=== PATIENT | female | born 1995 | race Caucasian/White ===

== ENCOUNTER 2017-04-07 12:24 | Inpatient (IN) | payer BC, OTHER ==
[2017-04-07] VITALS (13 sets, daily range): BP systolic 105–165; BP diastolic 64–111
[~2017-04-07] VITALS: Ht 167.6 cm; Wt 91.4 kg
[2017-04-07 14:45] LABS: EOSINOPHIL (%) 0.1 % (0-5); HEMATOCRIT 32.6 % (36.0-46.0); IMMATURE GRANULOCYTE (%) 0.4 % (0.0-0.7); IMMATURE GRANULOCYTE COUNT 0.1 K/uL; INSTRUMENT ABS NEUTROPHIL CT 15.2 K/uL; MCH 28.6 PG (29.0-34.0); MCHC 32.5 G/DL (30.0-36.0); MCV 87.9 FL (83-99); MEAN PLAT.VOLUME 11.6 uM^3 (9.5-12.4); MONOCYTE (%) 4.5 % (3-12); MONOCYTE COUNT 0.8 K/uL (0-0.8); NEUTROPHIL (%) 88.9 % (45-76); NEUTROPHIL COUNT 15.2 K/uL (1.8-6.4); PLATELET COUNT 240 K/uL (156-360); RBC DIS.WIDTH-SD 44.8 % (39-53); RED BLOOD COUNT 3.71 M/uL (3.80-5.20)
[2017-04-08 07:26] LABS: EOSINOPHIL (%) 0.2 % (0-5); HEMATOCRIT 29.7 % (36.0-46.0); IMMATURE GRANULOCYTE (%) 0.4 % (0.0-0.7); IMMATURE GRANULOCYTE COUNT 0.1 K/uL; INSTRUMENT ABS NEUTROPHIL CT 10.8 K/uL; LYMPHOCYTE COUNT 1.2 K/uL (1.0-2.8); MCH 28.4 PG (29.0-34.0); MCV 88.7 FL (83-99); MEAN PLAT.VOLUME 11.9 uM^3 (9.5-12.4); MONOCYTE (%) 5.9 % (3-12); MONOCYTE COUNT 0.8 K/uL (0-0.8); NEUTROPHIL (%) 83.7 % (45-76); NEUTROPHIL COUNT 10.8 K/uL (1.8-6.4); PLATELET COUNT 217 K/uL (156-360); RED BLOOD COUNT 3.35 M/uL (3.80-5.20); WHITE BLOOD COUNT 12.9 K/uL (4.1-10.2)
[2017-04-08 08:49] VITALS: BP 115/71
[2017-04-08 15:20] VITALS: BP 116/68
[2017-04-09 07:11] VITALS: BP 118/69
[2017-04-09] MEDS ORDERED: IBUPROFEN800 MG PO (09:34)
[2017-04-09] MEDS ORDERED: DOCUSATE SODIU100 MG PO (09:35)
== END 2017-04-09 17:00 | disposition home or self-care (01) | DRG 775 ==
LOC: LDRP-OP 12:24 → 2WEST 12:25 → LDRP-OP 05-11 10:39
PROVIDERS: Advanced Practice Midwife
DX: O71.82 Other specified trauma to perineum and vulva (principal); O77.0 Labor and delivery complicated by meconium in amniotic fluid; O69.81X0 Labor and delivery complicated by cord around neck, without compression, not applicable or unspecified; O99.02 Anemia complicating childbirth; D62 Acute posthemorrhagic anemia; O99.213 Obesity complicating pregnancy, third trimester; E66.3 Overweight; Z3A.39 39 weeks gestation of pregnancy; Z37.0 Single live birth
CPT/HCPCS: 85025; 90686; C1755; J0595; J2590